=== PATIENT | male | born 1930 ===

== ENCOUNTER 2018-01-30 10:28 | Emergency (ER) | payer MEDICARE, OTHER ==
[2018-01-30 10:42] VITALS: BMI 20.8
--- NOTE | 2018-01-30 11:01 | ED PDOC ---
Arrival/HPI - General Chief Complaint: Wound Check Time Seen by Provider: 01/30/18 10:40 Historian: Patient - History of Present Illness Narrative History of Present Illness (Text): 01/30/18 10:57 87 year old male, whose past medical history includes type 2 Diabetes, mild dementia, CAD s/p stents , and carotid stenosis, presents to the emergency department with bleeding wound, since 09:00 today. Patient was having wound care with Dr. Tam Demarco, and wound was controlled. Patient's daughter explains that it began to bleed a little bit yesterday. Daughter states, this morning, after his shower, it began to bleed much more. Patient denies any fevers, chills, aches, or any other complaint. PMD: Dr. Ashley Heredia Time/Duration: 1-3 hours (excess bleeding since 09:00), < month (Wound sustained 3 weeks prior) Past Medical History - Provider Review Nursing Documentation Reviewed: Yes - Infectious Disease Hx of Infectious Diseases: None - Cardiac Hx Hypertension: Yes - Neurological Hx Dementia: Yes (mild impairment ) - HEENT Hx Cataracts: Yes - Renal Hx Renal Disorder: No - Endocrine/Metabolic Hx Diabetes Mellitus Type 2: Yes (usually stable. Recent A1c was high ) - Hematological/Oncological Hx Blood Disorders: No - Integumentary Hx Dermatological Disorder: No - Musculoskeletal/Rheumatological Hx Arthritis: Yes Hx Falls: No - Gastrointestinal Hx Gastrointestinal Disorders: No - Genitourinary/Gynecological Hx Prostate Problems: Yes (benign prostatic hyperplasia) - Psychiatric Hx Psychophysiologic Disorder: No Hx Substance Use: No - Surgical History Hx Carotid Endarterectomy: Yes - Anesthesia Hx Anesthesia: Yes Hx Anesthesia Reactions: No - Suicidal Assessment Feels Threatened In Home Enviroment: No Family/Social History - Physician Review Nursing Documentation Reviewed: Yes Family/Social History: No Known Family HX Smoking Status: Never Smoked Hx Alcohol Use: No Hx Substance Use: No Allergies/Home Meds Allergies/Adverse Reactions: Allergies No Known Allergies Allergy (Unverified 02/13/15 03:09) Home Medications: Home Meds Medication Instructions Recorded Confirmed RX: Aspirin [Aspirin EC] 81 mg PO DAILY 05/02/14 02/13/15 RX: Atorvastatin Calcium [Lipitor] 40 mg PO HS 05/02/14 02/13/15 RX: Calcium/Mag/D3/B12/FA/B6/[place] 1 tab PO DAILY 05/02/14 02/13/15 [Folgard Os Tablet] RX: Celecoxib [Celebrex] 200 mg PO DAILY 05/02/14 02/13/15 RX: Donepezil HCl [Aricept] 10 mg PO HS 05/02/14 02/13/15 RX: Glimepiride [Amaryl] 1 mg PO BID 05/02/14 02/13/15 RX: Metoprolol Tartrate 25 mg PO HS 05/02/14 02/13/15 RX: Risedronate Sodium [Actonel] 35 mg PO QWK 05/02/14 02/13/15 RX: Sitagliptin Phosphate [Januvia] 100 mg PO DAILY 05/02/14 02/13/15 RX: Terazosin Hydrochloride 5 mg PO DAILY 05/02/14 02/13/15 [Hytrin] Review of Systems - Physician Review All systems were reviewed & negative as marked: Yes - Review of Systems Constitutional: absent: Weight Change, Fevers, Other (body aches) Skin: Other (open wound to left buttock) Physical Exam Vital Signs Reviewed: Yes Vital Signs Temp Pulse Resp BP Pulse Ox 01/30/18 10:31 97.9 F 70 20 162/69 H 99 Temperature: Afebrile Blood Pressure: Hypertensive Pulse: Regular Respiratory Rate: Normal Appearance: Positive for: Well-Appearing, Non-Toxic, Comfortable Pain Distress: None Mental Status: Positive for: Alert and Oriented X 3 - Systems Exam Head: Present: Atraumatic, Normocephalic Pupils: Present: PERRL Extroacular Muscles: Present: EOMI Conjunctiva: Present: Normal Mouth: Present: Moist Mucous Membranes Neck: Present: Normal Range of Motion Respiratory/Chest: Present: Clear to Auscultation, Good Air Exchange. No: Respiratory Distress, Accessory Muscle Use Cardiovascular: Present: Regular Rate and Rhythm, Normal S1, S2. No: Murmurs Abdomen: No: Tenderness, Distention, Peritoneal Signs Back: Present: Normal Inspection Upper Extremity: Present: Normal Inspection. No: Cyanosis, Edema Lower Extremity: Present: Normal Inspection. No: Edema Neurological: Present: GCS=15, CN II-XII Intact, Speech Normal Skin: Present: Warm, Dry, Normal Color, Other (Stage 2 Sacral ulcer with oozing bleeding. ). No: Rashes Psychiatric: Present: Alert, Oriented x 3, Normal Insight, Normal Concentration Medical Decision Making ED Course and Treatment: 01/30/18 11:15 Impression: 87 year old male presents with sacral wound with oozing bleeding. Patient is on Aspirin and Plavix. Plan: -- Labs -- Patient's wound with pressure gauze for residential door unit installer to evaluate. Prior Visits: Notes and results from previous visits were reviewed. Progress Notes: 01/30/18 15:00 No lightheadedness or weakness on reevaluation. Labs reviewed. vice president corporate communications Kong Randall evaluated wound and controlled bleeding with gel foam and Avitene. Bleeding controlled. Pressure bandage placed. Surgery advised he follow up with Dr. Demarco in 1 week. Keep the wound dry for 2 days. This was explained to family and to the patient. - Scribe Statement The provider has reviewed the documentation as recorded by the Scribe Gabriel Zurita Provider Scribe Attestation: All medical record entries made by the Scribe were at my direction and personally dictated by me. I have reviewed the chart and agree that the record accurately reflects my personal performance of the history, physical exam, [facility] decision making, and the department course for this patient. I have also personally directed, reviewed, and agree with the discharge instructions and disposition. Disposition/Present on Arrival - Present on Arrival Any Indicators Present on Arrival: No History of DVT/PE: No History of Uncontrolled Diabetes: No Urinary Catheter: No History of Decub. Ulcer: Yes (Buttock x 21 days) History Surgical Site Infection Following: None - Disposition Have Diagnosis and Disposition been Completed?: Yes Diagnosis: Sacral wound, Bleeding from wound Disposition: HOME/ ROUTINE Disposition Time: 15:08 Patient Plan: Discharge Condition: IMPROVED Additional Instructions: JOHANNA GARCIA, thank you for letting us take care of you today. Your provider was Efraín Clements DO and you were treated for Sacral Wound with Bleeding. The emergency medical care you received today was directed at your acute symptoms. If you were prescribed any medication, please fill it and take as directed. It may take several days for your symptoms to resolve. Return to the Emergency Department if your symptoms worsen, do not improve, or if you have any other problems. MAKE SURE TO KEEP THE WOUND DRY FOR 2 DAYS AND FOLLOW UP WITH DR DEMARCO IN 1 WEEK. Please contact your doctor or call one of the physicians/clinics you have been referred to that are listed on the Patient Visit Information form that is included in your discharge packet. Bring any paperwork you were given at discharge with you along with any medications you are taking to your follow up visit. Our treatment cannot replace ongoing medical care by a primary care provider outside of the emergency department. Thank you for allowing the [facility] team to be part of your care today. If you had an X-Ray or CT scan: A Radiologist will review the ED reading if any change in treatment is needed we will contact you. If you had a blood, urine, or wound culture: It will take several days for the results, if any change in treatment is needed we will contact you. If you had an STI test: It will take 48 hours for the results. Please call after 1 week if you have not heard back. Referrals: Ashley Heredia MD [Primary Care Provider] - Follow up with primary Tam Demarco MD [Staff Provider] - Follow up with primary Forms: [employer] (Lithuanian)
[2018-01-30 11:38] LABS: BASO # 0.02 K/mm3 (0.0-2.0); BASO % 0.3 % (0.0-3.0); EOS # 0.2 (0.0-0.7); EOS % 2.5 % (1.5-5.0); GRAN # 4.54 (1.4-6.5); HEMOGLOBIN 11.2 g/dL (14.0-18.0); LYMPH # 1.4 (1.2-3.4); LYMPH % 20.7 % (22.0-35.0); MEAN CELL VOLUME 86.9 fl (80.0-105.0); MEAN CORPUSCULAR HEMOGLOBIN 29.9 pg (25.0-35.0); MEAN CORPUSCULAR HGB CONC 34.5 g/dl (31.0-37.0); MEAN PLATELET VOLUME 10.4 fl (7.0-11.0); MONO # 0.6 (0.1-0.6); MONO % 9.5 % (1.0-6.0); RBC 3.74 10^6/uL (3.5-6.1); WHITE BLOOD COUNT 6.8 10^3/ul (4.5-11.0)
[2018-01-30 11:44] LABS: ALBUMIN 3.4 g/dL (3.0-4.8); ALT/SGPT 13 U/L (7-56); AST/SGOT 19 U/L (17-59); BLOOD UREA NITROGEN 12 mg/dL (7-21); CALCIUM 8.9 mg/dL (8.4-10.5); GFR NON-AFRICAN AMERICAN > 60; INR 0.99; PARTIAL THROMBOPLASTIN TIME 32.6 Seconds (25.1-36.5); PROTHROMBIN TIME 11.4 SECONDS (9.4-12.5)
[2018-01-30 12:06] VITALS: RESP 18; O2SAT 100
[2018-01-30] MEDS ORDERED: Absorbable Gelatin Sponge Size 100 ONE (13:44)
[2018-01-30] MEDS ORDERED: Collagen Hemostat Powder ONE (13:44)
[2018-01-30 14:10] VITALS: BP 162/66; PULSE 69; TEMP 97.6
== END 2018-01-30 14:10 | disposition home or self-care (01) ==
LOC: ED 10:28
DX: S31.000A Unspecified open wound of lower back and pelvis without penetration into retroperitoneum, initial encounter (principal); X58.XXXA Exposure to other specified factors, initial encounter; E11.9 Type 2 diabetes mellitus without complications; I25.10 Atherosclerotic heart disease of native coronary artery without angina pectoris